=== PATIENT | female | born 2005 | race Caucasian/White ===

== ENCOUNTER 2025-06-10 10:52 | Emergency (ER) | payer BC ==
[~2025-06-10] VITALS: Ht 162.6 cm; Wt 93.2 kg
[2025-06-10] MEDS ORDERED: MOME13HF8 (11:08)
[2025-06-10] MEDS ORDERED: NORG1TAB33 (11:08)
[2025-06-10] MEDS ORDERED: CETI10CH PO (11:08)
[2025-06-10] MEDS ORDERED: MONT10TA97 PO (11:08)
[2025-06-10] MEDS: NS (Normal Saline) 0.9% 1,000 ML IV ONE (12:15)
[2025-06-10] MEDS: ACETAMINOPHEN 325 MG TAB PO ONE (12:15)
[2025-06-10 12:44] LABS: BASO # 0.0 10^3/uL (0.0-0.2); BASO % 0.3 % (0.0-1.0); EOS # 0.1 10^3/uL (0.0-0.5); EOS % 0.3 % (0.0-3.0); LYMPH # 1.6 10^3/uL (1.5-5.0); LYMPH % 10.5 % (24.0-44.0); MONO # 0.5 10^3/uL (0.0-0.8); MONO % 3.7 % (2.0-8.0); NEUTROPHILS # 12.5 10^3/uL (1.5-8.5); NEUTROPHILS % 84.8 % (36.0-66.0); PLATELET COUNT, AUTOMATED 321 10^3/uL (150-450)
[2025-06-10] MEDS ORDERED: ISOVUE-370 76% 100 ML VIAL As Ordered ONE (12:47)
[2025-06-10 13:11] LABS: ALT/SGPT 13 U/L (7.0-40); AST/SGOT 13 U/L (<34); CALCIUM LEVEL 10.1 MG/DL (8.5-10.1); CARBON DIOXIDE LEVEL 27 MMOL/L (20-31); CHLORIDE LEVEL 100 MMOL/L (98-107); CREATININE FOR GFR 0.67 MG/DL (0.55-1.30); GLOMERULAR FILTRATION RATE > 90.0 (>60); POTASSIUM SERUM 4.2 MMOL/L (3.5-5.1); SODIUM LEVEL 134 MMOL/L (136-145)
[2025-06-10 14:11] LABS: KETONE, URINE AUTO RFX NEGATIVE (NEGATIVE); LEUKOCYTE ESTERASE UR AUTO RFX TRACE (NEGATIVE); MUCUS, URINE RFX SMALL (NEGATIVE); NITRITE, URINE AUTO RFX NEGATIVE (NEGATIVE); RBC, URINE AUTO RFX 1 /HPF (0-3); SQUAM EPITHELIAL CELL UR AURFX 1 /HPF (0-6); WBC, URINE AUTO RFX 2 /HPF (0-3)
[2025-06-10 15:36] VITALS: BP 137/75; TEMP 97.8; O2SAT 100
== END 2025-06-10 15:41 | disposition home or self-care (01) ==
LOC: M ED 10:52
DX: K29.00 Acute gastritis without bleeding (principal); R19.7 Diarrhea, unspecified; R10.9 Unspecified abdominal pain; J45.909 Unspecified asthma, uncomplicated; Z91.09 Other allergy status, other than to drugs and biological substances
CPT/HCPCS: 71046; 74177; 80047; 80048; 80076; 81001; 83605; 83690; 85025; 87086; 93005; 96360; 96361; 99284; Q9967

== ENCOUNTER → 2025-08-08 | Outpatient (REF) | payer BC ==
[~2025-08-08] MED LIST: CETI10CH PO; MOME13HF8; MONT10TA97 PO; NORG1TAB33
[2025-08-08 13:49] LABS: BASO # 0.1 10^3/uL (0.0-0.2); BASO % 0.5 % (0.0-1.0); EOS # 0.2 10^3/uL (0.0-0.5); EOS % 1.8 % (0.0-3.0); LYMPH # 1.7 10^3/uL (1.5-5.0); LYMPH % 17.5 % (24.0-44.0); MONO # 0.4 10^3/uL (0.0-0.8); MONO % 4.6 % (2.0-8.0); NEUTROPHILS # 7.2 10^3/uL (1.5-8.5); NEUTROPHILS % 75.3 % (36.0-66.0); PLATELET COUNT, AUTOMATED 335 10^3/uL (150-450)
[2025-08-08 14:15] LABS: ALT/SGPT 9 U/L (7.0-40); AST/SGOT 10 U/L (<34); CALCIUM LEVEL 9.4 MG/DL (8.5-10.1); CARBON DIOXIDE LEVEL 29 MMOL/L (20-31); CHLORIDE LEVEL 105 MMOL/L (98-107); CHOLESTEROL LEVEL 186 MG/DL (<200); CHOLESTEROL RISK RATIO 4.98 (<5); CREATININE FOR GFR 0.69 MG/DL (0.55-1.30); GLOMERULAR FILTRATION RATE > 90.0 (>60); LDL CHOLESTEROL 129.3 MG/DL (<100); NON-HDL-C 148.7 MG/DL; POTASSIUM SERUM 4.8 MMOL/L (3.5-5.1); SODIUM LEVEL 144 MMOL/L (136-145); TRIGLYCERIDES LEVEL 97 MG/DL (<150)
[2025-08-08 14:35] LABS: ESTIMATED AVERAGE GLUCOSE 103.0 MG/DL (60-110)
== END ==
LOC: M SFHCCLAY 08:52
PROVIDERS: ATTEND Nurse Practitioner Family
DX: Z00.00 Encounter for general adult medical examination without abnormal findings (principal); R19.8 Other specified symptoms and signs involving the digestive system and abdomen